=== PATIENT | female | born 1955 | race Caucasian/White ===

== ENCOUNTER → 2017-03-10 | Outpatient (CLI) | payer OTHER ==
[~2017-03-10] MED LIST: ADULT LOW DOSE81 M1 PO; ALBUTEROL SULF8.5 GM IH; AMITRIPTYLINE H50 MG PO; AMITRIPTYLINE100 MG PO; APIDRA SOL100 UNIT/1 SC; ASPIR-LOW81 MG PO; ASPIRIN81 M1 PO; ASPIRIN81 M2 PO; ATORVASTATIN CA40 MG PO; AUGMENTIN875 MG PO; AVAPRO150 MG PO; Aspirin E.C. PO; BACTRIM,SEPT1 TABLET PO; BACTROBAN CREAM15 GM TP; BACTROBAN NASAL1 G1 BOTH NARES; CALCITRIOL0.25 MCG PO; CALCIUM + VITA1 EACH PO; CALCIUM 500 +1 EAC2 PO; CALCIUM 500 +1 EACH PO; CALCIUM 600 +1 EAC1 PO; CALCIUM 600 +1 EAC3 PO; CALCIUM 600 +1 EACH PO; CALCIUM 600 MG1 EAC1 PO; CARDIZEM CD,CA360 MG PO; CELEXA20 MG PO; CELEXA40 MG PO; CHILD ASPIRIN81 M1 PO; CHOLESTROL MED; CIPRO500 MG PO; CIPROFLOXACIN500 M1 PO; CITALOPRAM HBR20 MG PO; CITALOPRAM HBR40 MG PO; CLEOCIN300 MG PO; COUMADIN1 MG PO; COUMADIN2.5 MG PO; COUMADIN5 MG PO; COUMADIN7.5 MG PO; CYMBALTA20 MG PO; Caltrate 600/200 PO; Cardizem CD,Cartia X PO; DIFLUCAN100 MG PO; DIGITEK125 MC2 PO; DIGOX125 MCG PO; DIGOXIN125 MCG PO; DOXYCYCLINE HY100 M3 PO; DOXYCYCLINE HY100 MG PO; ELAVIL100 MG PO; ELAVIL25 MG PO; ELAVIL50 MG PO; ELIQUIS5 MG PO; ENDOCET 5-3251 EACH PO; ERYTHROMYC1 APPLICAT LEFT EYE; Elavil PO; FUROSEMIDE40 MG PO; GABAPENTIN100 MG PO; GABAPENTIN300 MG PO; GEMFIBROZIL600 MG PO; GLIPIZIDE10 MG PO; GLIPIZIDE5 MG PO; GLUCOPHAGE XR,500 MG PO; GLUCOPHAGE1000 MG PO; GLUCOTROL10 MG PO; GLUCOTROL5 MG PO; HUMALOG100 UNIT/1 SC; HUMULIN N100 UNIT/2 SC; HUMULIN N100 UNITS/ SC; HUMULIN R100 UNITS/ SC; HYDROCODON-ACE1 EAC7 PO; IRBESARTAN150 MG PO; IRON27 MG PO; IRON325 MG PO; LASIX40 MG PO; LEVAQUIN500 MG PO; LEVEMIR100 UNIT/2 SC; LEVOFLOXACIN750 MG PO; LEXAPRO10 MG PO; LIPITOR40 MG PO; LO-DOSE ASPIRIN81 M1 PO; LOPID600 MG PO; LOPRESSOR100 M1 PO; LOPRESSOR25 MG PO; LOPRESSOR50 MG PO; LORCET 5-325 M1 EACH PO; LOTENSIN40 MG PO; LOVASTATIN40 MG PO; Lasix PO; Lotensin PO; MAGNESIUM400 M1 PO; METFORMIN HCL1000 M1 PO; METOPROLOL PO; METOPROLOL SUC100 MG PO; METOPROLOL SUC200 MG PO; METOPROLOL TAR100 MG PO; METOPROLOL TART25 MG PO; METOPROLOL TART50 MG PO; MONOPRIL40 MG PO; MYRBETRIQ25 MG PO; NEURONTIN300 MG PO; NIZORAL 2% CREA15 GM TP; NORCO 5/3251 TABLET PO; NORVASC5 MG PO; NOVOLIN N100 UNITS/ SC; NOVOLIN N100 UNITS/ SQ; NOVOLOG100 UNIT/1 SC; OMEPRAZOLE40 M1 PO; OS-CAL 500+D T1 EAC1 PO; OXYCONTIN10 MG PO; PERCOCET 5/31 TABLET PO; PERFECT IRON25 MG PO; PRAVACHOL40 MG PO; PRAVACHOL80 MG PO; PRAVASTATIN SOD80 MG PO; PRILOSEC40 MG PO; PROVENTIL,2.5 MG/0.5 AEROSOL; ROCALTROL0.25 MCG PO; TOPROL XL100 MG PO; TOUJEO SOL300 UNIT/1 SC; Toprol XL PO; VICODIN,LORT1 TABLET PO; VITAMIN D1000 UNIT PO; VITAMIN D31000 UNIT PO; WARFARIN SODIU2.5 MG PO; WARFARIN SODIUM4 MG PO; WARFARIN SODIUM5 MG PO; XARELTO10 MG PO; Xarelto PO; ZYVOX600 MG PO; celeXA PO
== END | disposition home or self-care (01) ==
LOC: NUC 13:49
DX: C50.912 Malignant neoplasm of unspecified site of left female breast (principal)
CPT/HCPCS: 78195; 78999; A9541

== ENCOUNTER 2017-03-11 05:09 | Day surgery (SDC) | payer OTHER ==
[~2017-03-11] VITALS: Ht 170.2 cm; Wt 155.2 kg
[2017-03-11 06:04] VITALS: BP 143/65
[2017-03-11 06:46] LABS: POINT-OF-CARE METER ID UU14174212
[2017-03-11 07:29] LABS: POINT-OF-CARE METER ID UU14174212
[2017-03-11 07:50] LABS: METH RESISTANT S AUREUS PCR NEGATIVE (NEGATIVE)
[2017-03-11 07:51] LABS: PROBE CHECK PASS; SPECIMEN PROCESSING CONTROL PASS
[2017-03-11 10:09] LABS: POINT-OF-CARE METER ID UU14174212
[2017-03-11 12:26] LABS: POINT-OF-CARE METER ID UU13113675; POINT-OF-CARE USER ID 515036437
[2017-03-11 13:53] VITALS: BP 118/73
[2017-03-11 14:49] VITALS: BP 127/56
[2017-03-11 16:31] VITALS: BP 138/62
[2017-03-11 16:34] LABS: POINT-OF-CARE METER ID UU14174212
== END 2017-03-11 16:30 | disposition home or self-care (01) ==
LOC: SDC 05:09
PROVIDERS: Surgery Surgical Oncology
DX: C50.112 Malignant neoplasm of central portion of left female breast (principal); Z17.0 Estrogen receptor positive status [ER+]; Z85.71 Personal history of Hodgkin lymphoma; Z92.3 Personal history of irradiation; Z92.21 Personal history of antineoplastic chemotherapy; Z99.3 Dependence on wheelchair; E11.42 Type 2 diabetes mellitus with diabetic polyneuropathy; Z79.899 Other long term (current) drug therapy; E11.22 Type 2 diabetes mellitus with diabetic chronic kidney disease; I12.9 Hypertensive chronic kidney disease with stage 1 through stage 4 chronic kidney disease, or unspecified chronic kidney disease; N18.9 Chronic kidney disease, unspecified; E78.5 Hyperlipidemia, unspecified; E66.01 Morbid (severe) obesity due to excess calories; Z68.43 Body mass index [BMI] 50.0-59.9, adult; Z86.14 Personal history of Methicillin resistant Staphylococcus aureus infection; Z80.3 Family history of malignant neoplasm of breast; Z98.1 Arthrodesis status; Z98.61 Coronary angioplasty status; Z82.49 Family history of ischemic heart disease and other diseases of the circulatory system; Z80.0 Family history of malignant neoplasm of digestive organs; Z79.82 Long term (current) use of aspirin; Z79.4 Long term (current) use of insulin; Z88.1 Allergy status to other antibiotic agents
CPT/HCPCS: 82948; 87641; 88305; 88307; 88331; 88332; J0690; J1100; J1170; J1815; J2250; J2405; J3010; S0020

== ENCOUNTER → 2017-04-07 | Outpatient (CLI) | payer OTHER ==
[~2017-04-07] VITALS: Ht 167.6 cm; Wt 158.6 kg
[~2017-04-07] MED LIST changes: +CYMBALTA60 MG PO
[2017-04-07 12:09] LABS: POINT-OF-CARE METER ID UU13113694
[2017-04-07 12:46] LABS: POINT-OF-CARE METER ID UU13113694
[2017-04-07 13:04] LABS: POINT-OF-CARE METER ID UU13113819
== END | disposition home or self-care (01) ==
LOC: AMB 11:10
PROVIDERS: Internal Medicine Gastroenterology
PROC: 0DJ08ZZ Inspection of Upper Intestinal Tract, Via Natural or Artificial Opening Endoscopic (ICD-10-PCS; principal; 2017-04-07)
DX: R13.10 Dysphagia, unspecified (principal); K29.70 Gastritis, unspecified, without bleeding; E66.01 Morbid (severe) obesity due to excess calories; Z68.43 Body mass index [BMI] 50.0-59.9, adult; K21.9 Gastro-esophageal reflux disease without esophagitis; I48.91 Unspecified atrial fibrillation; Z79.01 Long term (current) use of anticoagulants; I12.9 Hypertensive chronic kidney disease with stage 1 through stage 4 chronic kidney disease, or unspecified chronic kidney disease; E11.22 Type 2 diabetes mellitus with diabetic chronic kidney disease; N18.9 Chronic kidney disease, unspecified; G47.30 Sleep apnea, unspecified; E78.5 Hyperlipidemia, unspecified; Z85.3 Personal history of malignant neoplasm of breast; Z85.72 Personal history of non-Hodgkin lymphomas
CPT/HCPCS: 82948

== ENCOUNTER 2017-05-18 10:47 | Emergency (ER) | payer OTHER ==
[~2017-05-18] VITALS: Ht 167.6 cm; Wt 177.0 kg
[2017-05-18 12:54] LABS: EOSINOPHIL (%) 1.9 % (0-5); EOSINOPHIL COUNT 0.2 K/uL (0-0.3); HEMATOCRIT 36.2 % (36.0-46.0); IMMATURE GRANULOCYTE (%) 0.5 % (0.0-0.7); INSTRUMENT ABS NEUTROPHIL CT 5.5 K/uL; LYMPHOCYTE COUNT 1.6 K/uL (1.0-2.8); MCH 23.6 PG (29.0-34.0); MCHC 29.8 G/DL (30.0-36.0); MEAN PLAT.VOLUME 9.8 uM^3 (9.5-12.4); MONOCYTE (%) 6.4 % (3-12); MONOCYTE COUNT 0.5 K/uL (0-0.8); NEUTROPHIL (%) 70.9 % (45-76); NEUTROPHIL COUNT 5.5 K/uL (1.8-6.4); PLATELET COUNT 238 K/uL (156-360); RBC DIS.WIDTH-CV 16.4 % (11.8-14.6); RBC DIS.WIDTH-SD 46.4 % (39-53); RED BLOOD COUNT 4.58 M/uL (3.80-5.20); WHITE BLOOD COUNT 7.8 K/uL (4.1-10.2)
[2017-05-18 13:27] LABS: INTER. NORMALIZED RATIO 1.1; PTT 32.9 (25-32)
[2017-05-18 13:31] LABS: CHLORIDE 109 mEq/L (99-109); POTASSIUM 5.4 mEq/L (3.7-5.4); SODIUM 140 mEq/L (136-147)
[2017-05-18 13:32] LABS: GLUCOSE 83 mg/dL (70-99)
[2017-05-18 13:34] LABS: ANION GAP 6 MEQ/L (2-14)
[2017-05-18 13:36] LABS: GFR ESTIMATE (CALCULATED) 21 mL/min/
[2017-05-18 13:37] LABS: UREA NITROGEN (BUN) 50 mg/dL (9-23)
[2017-05-18 13:55] LABS: TROP-I INTERPRETATION NEGATIVE; TROPONIN-I 0.02 ng/mL (0.0-0.30)
[2017-05-18] MEDS ORDERED: PROVENTIL HFA6.7 GM IH (14:02)
[2017-05-18 14:26] VITALS: BP 183/80
== END 2017-05-18 14:40 | disposition home or self-care (01) ==
LOC: EME 10:47
PROVIDERS: Emergency Medicine
DX: J45.901 Unspecified asthma with (acute) exacerbation (principal); J44.1 Chronic obstructive pulmonary disease with (acute) exacerbation; I50.9 Heart failure, unspecified; E78.5 Hyperlipidemia, unspecified; Z79.82 Long term (current) use of aspirin
CPT/HCPCS: 71010; 80048; 83880; 84484; 85025; 85610; 85730; 93005; 94640; 99281; 99285; J2930

== ENCOUNTER 2017-07-13 14:30 | Inpatient (IN) | payer OTHER ==
[~2017-07-13] VITALS: Ht 167.6 cm; Wt 177.2 kg
[~2017-07-13 14:30] MED LIST changes: +PROVENTIL HFA6.7 GM IH
[2017-07-13 15:36] LABS: EOSINOPHIL (%) 1.4 % (0-5); EOSINOPHIL COUNT 0.1 K/uL (0-0.3); HEMATOCRIT 27.7 % (36.0-46.0); IMMATURE GRANULOCYTE (%) 0.3 % (0.0-0.7); INSTRUMENT ABS NEUTROPHIL CT 7.3 K/uL; MCH 21.5 PG (29.0-34.0); MCHC 28.5 G/DL (30.0-36.0); MEAN PLAT.VOLUME 9.4 uM^3 (9.5-12.4); MONOCYTE COUNT 0.5 K/uL (0-0.8); NEUTROPHIL (%) 81.1 % (45-76); NEUTROPHIL COUNT 7.3 K/uL (1.8-6.4); PLATELET COUNT 260 K/uL (156-360); RBC DIS.WIDTH-CV 17.3 % (11.8-14.6); RBC DIS.WIDTH-SD 47.6 % (39-53); RED BLOOD COUNT 3.68 M/uL (3.80-5.20)
[2017-07-13 15:37] LABS: MCV 75.3 FL (83-99)
[2017-07-13 15:44] LABS: CHLORIDE 112 mEq/L (99-109); POTASSIUM 5.5 mEq/L (3.7-5.4); SODIUM 142 mEq/L (136-147)
[2017-07-13 15:45] LABS: GLUCOSE 119 mg/dL (70-99)
[2017-07-13 15:47] LABS: ANION GAP 7 MEQ/L (2-14)
[2017-07-13 15:49] LABS: GFR ESTIMATE (CALCULATED) 21 mL/min/
[2017-07-13 15:50] LABS: UREA NITROGEN (BUN) 58 mg/dL (9-23)
[2017-07-13 15:56] LABS: TROP-I INTERPRETATION NEGATIVE; TROPONIN-I < 0.01 ng/mL (0.0-0.30)
[2017-07-13 18:28] LABS: POINT-OF-CARE METER ID UU13113747; POINT-OF-CARE USER ID NUTJNM
[2017-07-13] MEDS ORDERED: VENTOLIN HFA18 GM IH (19:20)
[2017-07-13 22:05] VITALS: BP 108/42
[2017-07-13 22:48] VITALS: BP 187/84
[2017-07-13 23:06] LABS: TROP-I INTERPRETATION NEGATIVE; TROPONIN-I < 0.01 ng/mL (0.0-0.30)
[2017-07-13 23:07] VITALS: BP 147/67
[2017-07-13 23:35] VITALS: BP 171/74
[2017-07-13 23:59] VITALS: BP 94/74
[2017-07-14] VITALS (10 sets, daily range): BP systolic 112–170; BP diastolic 59–74
[2017-07-14 03:54] LABS: CHLORIDE 110 mEq/L (99-109); POTASSIUM 5.3 mEq/L (3.7-5.4); SODIUM 141 mEq/L (136-147)
[2017-07-14 03:56] LABS: GLUCOSE 135 mg/dL (70-99)
[2017-07-14 03:58] LABS: ANION GAP 8 MEQ/L (2-14); TOTAL BILIRUBIN 0.6 mg/dL (0.0-1.0)
[2017-07-14 04:00] LABS: ALKALINE PHOSPHATASE 112 IU/L (3-129); GFR ESTIMATE (CALCULATED) 19 mL/min/
[2017-07-14 04:01] LABS: UREA NITROGEN (BUN) 63 mg/dL (9-23)
[2017-07-14 04:07] LABS: TROP-I INTERPRETATION NEGATIVE; TROPONIN-I < 0.01 ng/mL (0.0-0.30)
[2017-07-14 06:01] LABS: POINT-OF-CARE METER ID UU13113725
[2017-07-14 06:29] LABS: HEMATOCRIT 30.1 % (36.0-46.0)
[2017-07-14 12:08] LABS: POINT-OF-CARE METER ID UU13113725
[2017-07-14 13:10] LABS: HEMATOCRIT 32.1 % (36.0-46.0); MCV 77.7 FL (83-99)
[2017-07-14 16:32] LABS: POINT-OF-CARE METER ID UU13113725
[2017-07-14 18:14] LABS: HEMATOCRIT 33.5 % (36.0-46.0); MCV 78.1 FL (83-99)
[2017-07-15 01:06] LABS: MCV 76.9 FL (83-99)
[2017-07-15 06:29] LABS: EOSINOPHIL (%) 2.3 % (0-5); EOSINOPHIL COUNT 0.2 K/uL (0-0.3); IMMATURE GRANULOCYTE (%) 0.5 % (0.0-0.7); LYMPHOCYTE COUNT 1.7 K/uL (1.0-2.8); MCHC 31.6 G/DL (30.0-36.0); MEAN PLAT.VOLUME 9.2 uM^3 (9.5-12.4); MONOCYTE (%) 9.5 % (3-12); MONOCYTE COUNT 0.8 K/uL (0-0.8); PLATELET COUNT 236 K/uL (156-360); RBC DIS.WIDTH-CV 18.2 % (11.8-14.6); RBC DIS.WIDTH-SD 49.2 % (39-53); RED BLOOD COUNT 4.08 M/uL (3.80-5.20); WHITE BLOOD COUNT 8.8 K/uL (4.1-10.2)
[2017-07-15 06:49] LABS: ANION GAP 8 MEQ/L (2-14); CHLORIDE 110 MEQ/L (99-109); GFR ESTIMATE (CALCULATED) 19 mL/min/; POTASSIUM 4.3 MEQ/L (3.7-5.4); SAMPLE HEMOLYSIS CHECK 0; SAMPLE ICTERIC CHECK 0; SAMPLE LIPEMIA CHECK 0; SODIUM 143 MEQ/L (136-147); UREA NITROGEN (BUN) 55 mg/dL (9-23)
[2017-07-15 06:50] LABS: GLUCOSE 47 mg/dL (70-99)
[2017-07-15 07:35] VITALS: BP 128/60
[2017-07-15] MEDS ORDERED: LASIX40 MG PO (11:43)
[2017-07-15 12:50] LABS: HEMATOCRIT 33.8 % (36.0-46.0)
== END 2017-07-15 13:15 | disposition home health service (06) | DRG 291 ==
LOC: EME 14:30 → EDOF 19:47 → 5EAST 19:47 → EDOF 19:47 → ENRESERV 19:52 → CANRESERV 19:52 → ENRESERV 19:53 → EDOF 21:46 → 5EAST 21:53 → ENPENDDIS 07-15 → 5EAST 07-15 13:15
PROVIDERS: Emergency Medicine; Internal Medicine; Internal Medicine Nephrology
PROC: 30233N1 Transfusion of Nonautologous Red Blood Cells into Peripheral Vein, Percutaneous Approach (ICD-10-PCS; principal; 2017-07-13)
DX: I13.0 Hypertensive heart and chronic kidney disease with heart failure and stage 1 through stage 4 chronic kidney disease, or unspecified chronic kidney disease (principal); I50.33 Acute on chronic diastolic (congestive) heart failure; N18.4 Chronic kidney disease, stage 4 (severe); E87.5 Hyperkalemia; E11.21 Type 2 diabetes mellitus with diabetic nephropathy; E11.22 Type 2 diabetes mellitus with diabetic chronic kidney disease; D50.9 Iron deficiency anemia, unspecified; C50.912 Malignant neoplasm of unspecified site of left female breast; D63.1 Anemia in chronic kidney disease; I27.2 Other secondary pulmonary hypertension; I48.0 Paroxysmal atrial fibrillation; I48.2 Chronic atrial fibrillation; E11.40 Type 2 diabetes mellitus with diabetic neuropathy, unspecified; G47.33 Obstructive sleep apnea (adult) (pediatric); Z68.44 Body mass index [BMI] 60.0-69.9, adult; E66.01 Morbid (severe) obesity due to excess calories; R55 Syncope and collapse; I25.10 Atherosclerotic heart disease of native coronary artery without angina pectoris; E04.9 Nontoxic goiter, unspecified; I87.8 Other specified disorders of veins; K21.9 Gastro-esophageal reflux disease without esophagitis; G43.909 Migraine, unspecified, not intractable, without status migrainosus; E78.00 Pure hypercholesterolemia, unspecified; F32.9 Major depressive disorder, single episode, unspecified; F41.9 Anxiety disorder, unspecified; Z79.4 Long term (current) use of insulin; Z85.72 Personal history of non-Hodgkin lymphomas; Z90.710 Acquired absence of both cervix and uterus; Z96.612 Presence of left artificial shoulder joint
CPT/HCPCS: 71010; 80048; 80053; 82272; 82948; 83880; 84100; 84484; 85014; 85018; 85025; 86900; 86901; 86920; 93005; 94640; 94660; 99202; 99281; 99285; G0378; J0881; J1815; J1940; P9016

== ENCOUNTER 2017-09-10 18:17 | Emergency (ER) | payer OTHER ==
[~2017-09-10] VITALS: Ht 167.6 cm; Wt 167.1 kg
[~2017-09-10 18:17] MED LIST changes: +VENTOLIN HFA18 GM IH
[2017-09-10 19:40] LABS: CHLORIDE 104 mEq/L (99-109); POTASSIUM 5.1 mEq/L (3.7-5.4); SODIUM 139 mEq/L (136-147)
[2017-09-10 19:42] LABS: GLUCOSE 212 mg/dL (70-99)
[2017-09-10 19:43] LABS: ANION GAP 7 MEQ/L (2-14)
[2017-09-10 19:45] LABS: EOSINOPHIL (%) 0.9 % (0-5); EOSINOPHIL COUNT 0.1 K/uL (0-0.3); HEMATOCRIT 33.2 % (36.0-46.0); IMMATURE GRANULOCYTE (%) 0.4 % (0.0-0.7); INSTRUMENT ABS NEUTROPHIL CT 6.2 K/uL; LYMPHOCYTE COUNT 1.3 K/uL (1.0-2.8); MCH 21.3 PG (29.0-34.0); MCHC 28.6 G/DL (30.0-36.0); MCV 74.4 FL (83-99); MEAN PLAT.VOLUME 10.2 uM^3 (9.5-12.4); MONOCYTE (%) 6.3 % (3-12); MONOCYTE COUNT 0.5 K/uL (0-0.8); NEUTROPHIL (%) 75.8 % (45-76); NEUTROPHIL COUNT 6.2 K/uL (1.8-6.4); PLATELET COUNT 238 K/uL (156-360); RBC DIS.WIDTH-CV 18.9 % (11.8-14.6); RBC DIS.WIDTH-SD 50.2 % (39-53); RED BLOOD COUNT 4.46 M/uL (3.80-5.20); WHITE BLOOD COUNT 8.2 K/uL (4.1-10.2)
[2017-09-10 19:46] LABS: GFR ESTIMATE (CALCULATED) 16 mL/min/; UREA NITROGEN (BUN) 59 mg/dL (9-23)
[2017-09-10] MEDS ORDERED: DOXYCYCLINE HY100 MG PO (21:33)
[2017-09-10] MEDS ORDERED: UNABLE TO OBTAIN (22:37)
[2017-09-10 22:39] VITALS: BP 161/77
== END 2017-09-10 22:41 | disposition home or self-care (01) ==
LOC: EME 18:17
DX: L03.115 Cellulitis of right lower limb (principal); I12.9 Hypertensive chronic kidney disease with stage 1 through stage 4 chronic kidney disease, or unspecified chronic kidney disease; E11.22 Type 2 diabetes mellitus with diabetic chronic kidney disease; N18.9 Chronic kidney disease, unspecified; E87.6 Hypokalemia; I87.2 Venous insufficiency (chronic) (peripheral); E78.5 Hyperlipidemia, unspecified; Z85.72 Personal history of non-Hodgkin lymphomas; Z90.710 Acquired absence of both cervix and uterus; Z90.10 Acquired absence of unspecified breast and nipple; Z79.01 Long term (current) use of anticoagulants; Z79.82 Long term (current) use of aspirin; Z79.4 Long term (current) use of insulin
CPT/HCPCS: 80048; 83605; 85025; 99281; 99284

== ENCOUNTER 2017-12-02 05:33 | Day surgery (SDC) | payer OTHER ==
[~2017-12-02] VITALS: Ht 167.6 cm; Wt 158.7 kg
[~2017-12-02 05:33] MED LIST changes: +AMLODIPINE BESYL5 MG PO; +BUMETANIDE1 MG PO; +BUMEX1 MG PO; +BUMEX2 MG PO; +CALICUM 500+D1 EACH PO; +CIPRO250 MG PO; +DULOXETINE HCL40 MG PO; +LIDODERM 5% P1 PATCH TD; -LORCET 5-325 M1 EACH PO; +LYRICA25 MG PO; +METOLAZONE2.5 MG PO; +MUPIROCIN15 GM TP; +NOVOLOG PE100 UNITS/ SC; -NOVOLOG100 UNIT/1 SC; +PROBIOTIC1 EAC1 PO; +SILVER SULFADIA50 GM TP; +UNABLE TO OBTAIN
[2017-12-02 06:40] VITALS: BP 128/55
[2017-12-02 06:41] LABS: HEMATOCRIT 37.6 % (36.0-46.0); HEMOGLOBIN 11.5 G/DL (11.9-15.5); MCH 24.4 PG (29.0-34.0); MCHC 30.6 G/DL (30.0-36.0); MCV 79.7 FL (83-99); PLATELET COUNT 232 K/uL (156-360); RBC DIS.WIDTH-CV 21.5 % (11.8-14.6); RBC DIS.WIDTH-SD 61.2 % (39-53); RED BLOOD COUNT 4.72 M/uL (3.80-5.20); WHITE BLOOD COUNT 5.8 K/uL (4.1-10.2)
[2017-12-02 07:08] LABS: CHLORIDE 102 MEQ/L (99-109); CREATININE 3.3 MG/DL (0.6-1.3); GFR ESTIMATE (CALCULATED) 15 mL/min/; GLUCOSE 134 mg/dL (70-99); POTASSIUM 4.4 MEQ/L (3.7-5.4); SODIUM 139 MEQ/L (136-147); UREA NITROGEN (BUN) 75 mg/dL (9-23)
[2017-12-02 12:05] VITALS: BP 133/49
[2017-12-02 13:05] VITALS: BP 147/51
[2017-12-02 14:41] VITALS: BP 150/56
== END 2017-12-02 14:55 | disposition home or self-care (01) ==
LOC: SDC 05:33
PROVIDERS: Surgery
DX: I12.0 Hypertensive chronic kidney disease with stage 5 chronic kidney disease or end stage renal disease (principal); E11.22 Type 2 diabetes mellitus with diabetic chronic kidney disease; N18.6 End stage renal disease; I25.10 Atherosclerotic heart disease of native coronary artery without angina pectoris; E78.00 Pure hypercholesterolemia, unspecified; G47.30 Sleep apnea, unspecified; I48.91 Unspecified atrial fibrillation; Z86.14 Personal history of Methicillin resistant Staphylococcus aureus infection; I89.0 Lymphedema, not elsewhere classified; I70.232 Atherosclerosis of native arteries of right leg with ulceration of calf; Z79.4 Long term (current) use of insulin; Z79.01 Long term (current) use of anticoagulants
CPT/HCPCS: 80048; 82948; 85027; 87641; 93005; C1768; J0690; J1644; J2720; J3010

== ENCOUNTER 2017-12-14 14:57 | Emergency (ER) | payer OTHER ==
[~2017-12-14] VITALS: Ht 167.6 cm; Wt 162.0 kg
[2017-12-14 16:54] VITALS: BP 178/78
== END 2017-12-14 16:55 | disposition home or self-care (01) ==
LOC: EME 14:57
DX: T81.30XA Disruption of wound, unspecified, initial encounter (principal); I13.0 Hypertensive heart and chronic kidney disease with heart failure and stage 1 through stage 4 chronic kidney disease, or unspecified chronic kidney disease; E11.22 Type 2 diabetes mellitus with diabetic chronic kidney disease; I50.9 Heart failure, unspecified; N18.9 Chronic kidney disease, unspecified; Z99.2 Dependence on renal dialysis; Z79.4 Long term (current) use of insulin; I48.91 Unspecified atrial fibrillation; E78.5 Hyperlipidemia, unspecified; Z85.72 Personal history of non-Hodgkin lymphomas; K21.9 Gastro-esophageal reflux disease without esophagitis; F41.9 Anxiety disorder, unspecified; Z85.3 Personal history of malignant neoplasm of breast; Z90.12 Acquired absence of left breast and nipple; F32.9 Major depressive disorder, single episode, unspecified; Z79.82 Long term (current) use of aspirin
CPT/HCPCS: 99281; 99284

== ENCOUNTER 2018-04-01 06:57 | Day surgery (SDC) | payer OTHER ==
[~2018-04-01] VITALS: Ht 167.6 cm; Wt 163.0 kg
== END 2018-04-01 09:18 | disposition home or self-care (01) ==
LOC: CATH 06:57
PROVIDERS: Surgery
DX: T82.858A Stenosis of other vascular prosthetic devices, implants and grafts, initial encounter (principal); I12.0 Hypertensive chronic kidney disease with stage 5 chronic kidney disease or end stage renal disease; N18.6 End stage renal disease; Z99.2 Dependence on renal dialysis
CPT/HCPCS: 82948; C1725; C1769; C1874; C1894; J0360; J1644; J2250

== ENCOUNTER 2018-07-11 14:25 | Inpatient (IN) | payer OTHER ==
[~2018-07-11] VITALS: Ht 167.6 cm; Wt 140.1 kg
[2018-07-11 15:13] LABS: BASOPHIL (%) 0.3 % (0-1); EOSINOPHIL (%) 0.7 % (0-5); EOSINOPHIL COUNT 0.1 K/uL (0-0.3); HEMATOCRIT 41.3 % (36.0-46.0); HEMOGLOBIN 12.8 G/DL (11.9-15.5); IMMATURE GRANULOCYTE (%) 0.7 % (0.0-0.7); LYMPHOCYTE (%) 14.2 % (15-42); LYMPHOCYTE COUNT 1.8 K/uL (1.0-2.8); MCH 26.8 PG (29.0-34.0); MCV 86.6 FL (83-99); MONOCYTE (%) 7.2 % (3-12); MONOCYTE COUNT 0.9 K/uL (0-0.8); NEUTROPHIL (%) 76.9 % (45-76); NEUTROPHIL COUNT 9.9 K/uL (1.8-6.4); PLATELET COUNT 276 K/uL (156-360); RBC DIS.WIDTH-CV 19.2 % (11.8-14.6); RED BLOOD COUNT 4.77 M/uL (3.80-5.20); WHITE BLOOD COUNT 12.8 K/uL (4.1-10.2)
[2018-07-11 15:22] LABS: CHLORIDE 90 mEq/L (99-109); POTASSIUM 3.6 mEq/L (3.7-5.4); SODIUM 136 mEq/L (136-147)
[2018-07-11 15:24] LABS: GLUCOSE 120 mg/dL (70-99)
[2018-07-11 15:27] LABS: CREATININE 4.5 mg/dL (0.6-1.3); GFR ESTIMATE (CALCULATED) 10 mL/min/
[2018-07-11 15:28] LABS: UREA NITROGEN (BUN) 26 mg/dL (9-23)
[2018-07-11 18:02] VITALS: BP 127/47
[2018-07-11 22:57] VITALS: BP 138/66
[2018-07-12 06:32] LABS: HEMATOCRIT 39.1 % (36.0-46.0); MCH 26.7 PG (29.0-34.0); MCHC 30.7 G/DL (30.0-36.0); MCV 86.9 FL (83-99); PLATELET COUNT 261 K/uL (156-360); RBC DIS.WIDTH-CV 19.3 % (11.8-14.6); RBC DIS.WIDTH-SD 60.5 % (39-53); WHITE BLOOD COUNT 12.4 K/uL (4.1-10.2)
[2018-07-12 06:52] LABS: CHLORIDE 92 MEQ/L (99-109); CREATININE 5.1 MG/DL (0.6-1.3); GFR ESTIMATE (CALCULATED) 9 mL/min/; POTASSIUM 3.4 MEQ/L (3.7-5.4); SODIUM 137 MEQ/L (136-147); UREA NITROGEN (BUN) 31 mg/dL (9-23)
[2018-07-12 06:56] LABS: GLUCOSE 198 mg/dL (70-99)
[2018-07-12 07:00] VITALS: BP 130/52
[2018-07-12 09:52] LABS: HEMOGLOBIN A1c (GLYCOHEMOGLOB) 6.5 % (Below 5.7)
[2018-07-12] MEDS ORDERED: FERRIC CITRATE210 MG PO (13:06)
[2018-07-12] MEDS ORDERED: ALLOPURINOL100 MG PO (13:06)
[2018-07-12] MEDS ORDERED: AMLODIPINE BESYL5 MG PO (13:06)
[2018-07-12] MEDS ORDERED: ZOFRAN4 MG PO (13:06)
[2018-07-12] MEDS ORDERED: LINZESS72 MCG PO (13:09)
[2018-07-12 15:45] VITALS: BP 141/65
[2018-07-12 23:56] VITALS: BP 138/60
[2018-07-13 05:37] LABS: HEMATOCRIT 45.7 % (36.0-46.0); MCH 26.8 PG (29.0-34.0); MCHC 31.3 G/DL (30.0-36.0); MCV 85.7 FL (83-99); PLATELET COUNT 193 K/uL (156-360); RBC DIS.WIDTH-CV 20.1 % (11.8-14.6); RBC DIS.WIDTH-SD 60.1 % (39-53); RED BLOOD COUNT 5.33 M/uL (3.80-5.20); WHITE BLOOD COUNT 13.4 K/uL (4.1-10.2)
[2018-07-13 05:38] LABS: HEMOGLOBIN 14.3 G/DL (11.9-15.5)
[2018-07-13 05:46] LABS: CHLORIDE 94 MEQ/L (99-109); GLUCOSE 240 mg/dL (70-99); SODIUM 136 MEQ/L (136-147); UREA NITROGEN (BUN) 46 mg/dL (9-23)
[2018-07-13 05:56] LABS: CREATININE 6.4 MG/DL (0.6-1.3); GFR ESTIMATE (CALCULATED) 7 mL/min/; POTASSIUM 4.3 MEQ/L (3.7-5.4)
[2018-07-13 07:17] VITALS: BP 126/55
[2018-07-13 13:04] VITALS: BP 106/52
[2018-07-13 15:40] VITALS: BP 129/60
[2018-07-13 20:55] VITALS: BP 130/70
[2018-07-13 23:23] VITALS: BP 110/55
[2018-07-14 07:01] LABS: BASOPHIL (%) 0.5 % (0-1); BASOPHIL COUNT 0.1 K/uL (0-0.1); EOSINOPHIL (%) 1.8 % (0-5); EOSINOPHIL COUNT 0.2 K/uL (0-0.3); HEMATOCRIT 39.7 % (36.0-46.0); IMMATURE GRANULOCYTE (%) 0.8 % (0.0-0.7); LYMPHOCYTE (%) 16.4 % (15-42); LYMPHOCYTE COUNT 2.2 K/uL (1.0-2.8); MCH 26.8 PG (29.0-34.0); MCHC 30.2 G/DL (30.0-36.0); MCV 88.6 FL (83-99); MONOCYTE (%) 6.7 % (3-12); MONOCYTE COUNT 0.9 K/uL (0-0.8); NEUTROPHIL (%) 73.8 % (45-76); PLATELET COUNT 237 K/uL (156-360); RBC DIS.WIDTH-CV 19.6 % (11.8-14.6); RBC DIS.WIDTH-SD 62.4 % (39-53); RED BLOOD COUNT 4.48 M/uL (3.80-5.20); WHITE BLOOD COUNT 13.6 K/uL (4.1-10.2)
[2018-07-14 07:32] LABS: CHLORIDE 98 MEQ/L (99-109); GFR ESTIMATE (CALCULATED) 9 mL/min/; GLUCOSE 164 mg/dL (70-99); POTASSIUM 4.3 MEQ/L (3.7-5.4); SODIUM 137 MEQ/L (136-147); UREA NITROGEN (BUN) 32 mg/dL (9-23)
[2018-07-14 07:45] VITALS: BP 106/39
[2018-07-14 12:22] VITALS: BP 115/48
[2018-07-14 16:31] VITALS: BP 106/56
[2018-07-15 00:24] VITALS: BP 128/64
[2018-07-15 07:26] VITALS: BP 118/53
[2018-07-15 08:52] LABS: BASOPHIL (%) 0.6 % (0-1); BASOPHIL COUNT 0.1 K/uL (0-0.1); EOSINOPHIL (%) 1.7 % (0-5); EOSINOPHIL COUNT 0.2 K/uL (0-0.3); HEMATOCRIT 36.8 % (36.0-46.0); HEMOGLOBIN 11.3 G/DL (11.9-15.5); IMMATURE GRANULOCYTE (%) 1.1 % (0.0-0.7); LYMPHOCYTE COUNT 1.3 K/uL (1.0-2.8); MCH 26.8 PG (29.0-34.0); MCHC 30.7 G/DL (30.0-36.0); MCV 87.4 FL (83-99); MONOCYTE (%) 6.5 % (3-12); MONOCYTE COUNT 0.6 K/uL (0-0.8); NEUTROPHIL (%) 76.1 % (45-76); NEUTROPHIL COUNT 7.2 K/uL (1.8-6.4); PLATELET COUNT 209 K/uL (156-360); RBC DIS.WIDTH-CV 19.4 % (11.8-14.6); RBC DIS.WIDTH-SD 60.5 % (39-53); RED BLOOD COUNT 4.21 M/uL (3.80-5.20); WHITE BLOOD COUNT 9.5 K/uL (4.1-10.2)
[2018-07-15 09:11] LABS: ALBUMIN 2.4 G/DL (3.2-4.8); CHLORIDE 96 MEQ/L (99-109); POTASSIUM 4.1 MEQ/L (3.7-5.4); SODIUM 133 MEQ/L (136-147)
[2018-07-15 09:17] LABS: CREATININE 5.5 MG/DL (0.6-1.3); GFR ESTIMATE (CALCULATED) 8 mL/min/; GLUCOSE 186 mg/dL (70-99); PHOSPHORUS 5.4 mg/dL (2.5-4.9); UREA NITROGEN (BUN) 47 mg/dL (9-23)
[2018-07-15 13:16] VITALS: BP 113/49
[2018-07-15 15:30] VITALS: BP 121/56
[2018-07-15 23:01] VITALS: BP 106/51
[2018-07-16 05:59] LABS: BASOPHIL (%) 0.7 % (0-1); BASOPHIL COUNT 0.1 K/uL (0-0.1); EOSINOPHIL (%) 1.5 % (0-5); EOSINOPHIL COUNT 0.2 K/uL (0-0.3); HEMATOCRIT 38.5 % (36.0-46.0); HEMOGLOBIN 11.8 G/DL (11.9-15.5); LYMPHOCYTE (%) 17.4 % (15-42); LYMPHOCYTE COUNT 1.7 K/uL (1.0-2.8); MCH 26.8 PG (29.0-34.0); MCHC 30.6 G/DL (30.0-36.0); MCV 87.3 FL (83-99); MONOCYTE (%) 8.2 % (3-12); MONOCYTE COUNT 0.8 K/uL (0-0.8); NEUTROPHIL (%) 71.2 % (45-76); NEUTROPHIL COUNT 7.1 K/uL (1.8-6.4); PLATELET COUNT 193 K/uL (156-360); RBC DIS.WIDTH-CV 19.6 % (11.8-14.6); RED BLOOD COUNT 4.41 M/uL (3.80-5.20)
[2018-07-16 06:23] LABS: CHLORIDE 102 MEQ/L (99-109); GFR ESTIMATE (CALCULATED) 12 mL/min/; POTASSIUM 4.3 MEQ/L (3.7-5.4); SODIUM 138 MEQ/L (136-147); UREA NITROGEN (BUN) 28 mg/dL (9-23)
[2018-07-16 06:27] LABS: CREATININE 4.1 MG/DL (0.6-1.3); GLUCOSE 64 mg/dL (70-99)
[2018-07-16 07:00] VITALS: BP 134/61
[2018-07-16 15:30] VITALS: BP 121/55
[2018-07-16 23:09] VITALS: BP 119/58
[2018-07-17 07:47] VITALS: BP 122/68
[2018-07-17 08:14] LABS: BASOPHIL (%) 0.7 % (0-1); BASOPHIL COUNT 0.1 K/uL (0-0.1); EOSINOPHIL (%) 1.1 % (0-5); EOSINOPHIL COUNT 0.1 K/uL (0-0.3); HEMATOCRIT 35.2 % (36.0-46.0); IMMATURE GRANULOCYTE (%) 1.3 % (0.0-0.7); LYMPHOCYTE (%) 18.2 % (15-42); LYMPHOCYTE COUNT 1.8 K/uL (1.0-2.8); MCH 27.2 PG (29.0-34.0); MCHC 31.3 G/DL (30.0-36.0); MCV 86.9 FL (83-99); MONOCYTE (%) 6.8 % (3-12); MONOCYTE COUNT 0.7 K/uL (0-0.8); NEUTROPHIL (%) 71.9 % (45-76); NEUTROPHIL COUNT 6.9 K/uL (1.8-6.4); NRBC (%) 0.2 /100 WBC (0-0); PLATELET COUNT 194 K/uL (156-360); RBC DIS.WIDTH-CV 19.5 % (11.8-14.6); RED BLOOD COUNT 4.05 M/uL (3.80-5.20); WHITE BLOOD COUNT 9.6 K/uL (4.1-10.2)
[2018-07-17 08:35] LABS: ALBUMIN 2.5 G/DL (3.2-4.8); CHLORIDE 97 MEQ/L (99-109); PHOSPHORUS 5.8 mg/dL (2.5-4.9); POTASSIUM 4.9 MEQ/L (3.7-5.4); UREA NITROGEN (BUN) 41 mg/dL (9-23)
[2018-07-17 08:36] LABS: CREATININE 5.1 MG/DL (0.6-1.3); GFR ESTIMATE (CALCULATED) 9 mL/min/; GLUCOSE 222 mg/dL (70-99); SODIUM 131 MEQ/L (136-147)
[2018-07-17 12:48] VITALS: BP 109/72
[2018-07-17 15:56] VITALS: BP 124/57
[2018-07-17 23:16] VITALS: BP 147/63
[2018-07-18 07:05] VITALS: BP 116/57
[2018-07-18 15:00] VITALS: BP 130/62
[2018-07-18 23:35] VITALS: BP 147/63
[2018-07-19 08:15] VITALS: BP 133/63
[2018-07-19 14:11] LABS: BASOPHIL (%) 0.5 % (0-1); BASOPHIL COUNT 0.1 K/uL (0-0.1); EOSINOPHIL (%) 1.2 % (0-5); EOSINOPHIL COUNT 0.1 K/uL (0-0.3); HEMATOCRIT 36.5 % (36.0-46.0); HEMOGLOBIN 11.1 G/DL (11.9-15.5); IMMATURE GRANULOCYTE (%) 0.8 % (0.0-0.7); LYMPHOCYTE (%) 17.4 % (15-42); LYMPHOCYTE COUNT 1.8 K/uL (1.0-2.8); MCH 27.1 PG (29.0-34.0); MCHC 30.4 G/DL (30.0-36.0); MCV 89.2 FL (83-99); MONOCYTE (%) 7.1 % (3-12); MONOCYTE COUNT 0.7 K/uL (0-0.8); NEUTROPHIL COUNT 7.4 K/uL (1.8-6.4); NRBC (%) 0.3 /100 WBC (0-0); PLATELET COUNT 167 K/uL (156-360); RBC DIS.WIDTH-CV 19.9 % (11.8-14.6); RBC DIS.WIDTH-SD 62.8 % (39-53); RED BLOOD COUNT 4.09 M/uL (3.80-5.20); WHITE BLOOD COUNT 10.1 K/uL (4.1-10.2)
[2018-07-19 14:18] LABS: ALBUMIN 2.3 g/dL (3.2-4.8)
[2018-07-19 14:19] LABS: CHLORIDE 103 mEq/L (99-109); POTASSIUM 5.3 mEq/L (3.7-5.4); SODIUM 137 mEq/L (136-147)
[2018-07-19 14:21] LABS: GLUCOSE 124 mg/dL (70-99); TOTAL PROTEIN 6.4 g/dL (6.4-8.3)
[2018-07-19 14:23] LABS: TOTAL BILIRUBIN 0.5 mg/dL (0.0-1.0)
[2018-07-19 14:24] LABS: ALKALINE PHOSPHATASE 118 IU/L (3-129)
[2018-07-19 14:25] LABS: CREATININE 5.5 mg/dL (0.6-1.3); GFR ESTIMATE (CALCULATED) 8 mL/min/
[2018-07-19 14:26] LABS: AST (GOT) 16 IU/L (2-34); UREA NITROGEN (BUN) 43 mg/dL (9-23)
[2018-07-19 14:28] LABS: ALT (GPT) 11 IU/L (3-49)
[2018-07-19 16:21] VITALS: BP 135/63
[2018-07-19 23:51] VITALS: BP 153/71
[2018-07-20 06:10] LABS: HEMATOCRIT 35.8 % (36.0-46.0); HEMOGLOBIN 10.9 G/DL (11.9-15.5); MCHC 30.4 G/DL (30.0-36.0); MCV 88.6 FL (83-99); NRBC (%) 0.4 /100 WBC (0-0); PLATELET COUNT 144 K/uL (156-360); RBC DIS.WIDTH-CV 20.1 % (11.8-14.6); RBC DIS.WIDTH-SD 62.8 % (39-53); RED BLOOD COUNT 4.04 M/uL (3.80-5.20); WHITE BLOOD COUNT 8.3 K/uL (4.1-10.2)
[2018-07-20 06:15] LABS: BASOPHIL (%) 0.7 % (0-1); BASOPHIL COUNT 0.1 K/uL (0-0.1); EOSINOPHIL (%) 1.2 % (0-5); EOSINOPHIL COUNT 0.1 K/uL (0-0.3); IMMATURE GRANULOCYTE (%) 0.7 % (0.0-0.7); LYMPHOCYTE (%) 20.7 % (15-42); LYMPHOCYTE COUNT 1.7 K/uL (1.0-2.8); MONOCYTE (%) 8.1 % (3-12); MONOCYTE COUNT 0.7 K/uL (0-0.8); NEUTROPHIL (%) 68.6 % (45-76); NEUTROPHIL COUNT 5.7 K/uL (1.8-6.4)
[2018-07-20 06:34] LABS: CHLORIDE 102 MEQ/L (99-109); CREATININE 5.6 MG/DL (0.6-1.3); GFR ESTIMATE (CALCULATED) 8 mL/min/; POTASSIUM 4.6 MEQ/L (3.7-5.4); SODIUM 138 MEQ/L (136-147); UREA NITROGEN (BUN) 49 mg/dL (9-23)
[2018-07-20 06:41] LABS: GLUCOSE 66 mg/dL (70-99)
[2018-07-20 07:15] VITALS: BP 116/58
[2018-07-20 08:13] VITALS: BP 127/58
[2018-07-20 13:50] VITALS: BP 118/53
[2018-07-20 15:35] VITALS: BP 104/43
[2018-07-21 00:07] VITALS: BP 141/76
[2018-07-21 06:01] LABS: BASOPHIL (%) 0.8 % (0-1); BASOPHIL COUNT 0.1 K/uL (0-0.1); EOSINOPHIL (%) 1.1 % (0-5); EOSINOPHIL COUNT 0.1 K/uL (0-0.3); HEMATOCRIT 36.6 % (36.0-46.0); HEMOGLOBIN 11.1 G/DL (11.9-15.5); IMMATURE GRANULOCYTE (%) 0.7 % (0.0-0.7); LYMPHOCYTE (%) 22.5 % (15-42); LYMPHOCYTE COUNT 1.6 K/uL (1.0-2.8); MCH 26.9 PG (29.0-34.0); MCHC 30.3 G/DL (30.0-36.0); MCV 88.6 FL (83-99); MONOCYTE (%) 10.2 % (3-12); MONOCYTE COUNT 0.7 K/uL (0-0.8); NEUTROPHIL (%) 64.7 % (45-76); NEUTROPHIL COUNT 4.7 K/uL (1.8-6.4); PLATELET COUNT 101 K/uL (156-360); RBC DIS.WIDTH-CV 20.6 % (11.8-14.6); RBC DIS.WIDTH-SD 63.4 % (39-53); RED BLOOD COUNT 4.13 M/uL (3.80-5.20); WHITE BLOOD COUNT 7.3 K/uL (4.1-10.2)
[2018-07-21 06:27] LABS: CHLORIDE 101 MEQ/L (99-109); GFR ESTIMATE (CALCULATED) 11 mL/min/; POTASSIUM 4.3 MEQ/L (3.7-5.4); SODIUM 137 MEQ/L (136-147); UREA NITROGEN (BUN) 29 mg/dL (9-23)
[2018-07-21 06:28] LABS: CREATININE 4.2 MG/DL (0.6-1.3); GLUCOSE 122 mg/dL (70-99)
[2018-07-21 06:56] VITALS: BP 133/60
[2018-07-21 15:45] VITALS: BP 148/65
[2018-07-21 23:48] VITALS: BP 90/51
[2018-07-22 07:44] VITALS: BP 136/80
[2018-07-22 08:26] LABS: BASOPHIL (%) 0.5 % (0-1); BASOPHIL COUNT 0.1 K/uL (0-0.1); EOSINOPHIL (%) 0.4 % (0-5); HEMATOCRIT 34.1 % (36.0-46.0); HEMOGLOBIN 10.3 G/DL (11.9-15.5); IMMATURE GRANULOCYTE (%) 0.7 % (0.0-0.7); LYMPHOCYTE (%) 14.3 % (15-42); LYMPHOCYTE COUNT 1.5 K/uL (1.0-2.8); MCH 26.9 PG (29.0-34.0); MCHC 30.2 G/DL (30.0-36.0); MONOCYTE (%) 8.1 % (3-12); MONOCYTE COUNT 0.9 K/uL (0-0.8); NRBC (%) 0.2 /100 WBC (0-0); PLATELET COUNT 99 K/uL (156-360); RBC DIS.WIDTH-CV 20.5 % (11.8-14.6); RBC DIS.WIDTH-SD 65.1 % (39-53); RED BLOOD COUNT 3.83 M/uL (3.80-5.20); WHITE BLOOD COUNT 10.5 K/uL (4.1-10.2)
[2018-07-22 08:57] LABS: CHLORIDE 100 MEQ/L (99-109); POTASSIUM 4.6 MEQ/L (3.7-5.4); SODIUM 133 MEQ/L (136-147); UREA NITROGEN (BUN) 40 mg/dL (9-23); VANCOMYCIN, TROUGH 22.8 MCG/ML (10-20)
[2018-07-22 08:59] LABS: CREATININE 5.1 MG/DL (0.6-1.3); GLUCOSE 211 mg/dL (70-99)
[2018-07-22 09:00] LABS: GFR ESTIMATE (CALCULATED) 9 mL/min/
[2018-07-22 12:35] VITALS: BP 112/58
[2018-07-22 16:07] VITALS: BP 120/62
[2018-07-22 23:50] VITALS: BP 112/53
[2018-07-23 05:18] LABS: BASOPHIL (%) 0.7 % (0-1); BASOPHIL COUNT 0.1 K/uL (0-0.1); EOSINOPHIL (%) 0.6 % (0-5); EOSINOPHIL COUNT 0.1 K/uL (0-0.3); HEMOGLOBIN 10.3 G/DL (11.9-15.5); IMMATURE GRANULOCYTE (%) 0.6 % (0.0-0.7); LYMPHOCYTE (%) 17.5 % (15-42); LYMPHOCYTE COUNT 1.9 K/uL (1.0-2.8); MCH 27.7 PG (29.0-34.0); MCHC 30.3 G/DL (30.0-36.0); MCV 91.4 FL (83-99); MONOCYTE (%) 9.1 % (3-12); NEUTROPHIL (%) 71.5 % (45-76); NEUTROPHIL COUNT 7.6 K/uL (1.8-6.4); NRBC (%) 0.2 /100 WBC (0-0); PLATELET COUNT 71 K/uL (156-360); RBC DIS.WIDTH-CV 21.1 % (11.8-14.6); RED BLOOD COUNT 3.72 M/uL (3.80-5.20); WHITE BLOOD COUNT 10.7 K/uL (4.1-10.2)
[2018-07-23 06:13] LABS: CHLORIDE 101 MEQ/L (99-109); GFR ESTIMATE (CALCULATED) 13 mL/min/; GLUCOSE 197 mg/dL (70-99); POTASSIUM 4.4 MEQ/L (3.7-5.4); SODIUM 137 MEQ/L (136-147); UREA NITROGEN (BUN) 22 mg/dL (9-23); VANCOMYCIN, TROUGH 16.1 MCG/ML (10-20)
[2018-07-23 06:15] LABS: CREATININE 3.7 MG/DL (0.6-1.3)
[2018-07-23 06:24] VITALS: BP 119/61
[2018-07-23 07:45] VITALS: BP 123/58
[2018-07-23 15:30] VITALS: BP 101/43
[2018-07-23 20:45] VITALS: BP 125/58
[2018-07-24 07:20] VITALS: BP 113/54
[2018-07-24 10:27] LABS: BASOPHIL (%) 0.6 % (0-1); BASOPHIL COUNT 0.1 K/uL (0-0.1); EOSINOPHIL (%) 0.9 % (0-5); EOSINOPHIL COUNT 0.1 K/uL (0-0.3); HEMATOCRIT 31.5 % (36.0-46.0); HEMOGLOBIN 9.8 G/DL (11.9-15.5); IMMATURE GRANULOCYTE (%) 0.8 % (0.0-0.7); LYMPHOCYTE (%) 13.9 % (15-42); LYMPHOCYTE COUNT 1.4 K/uL (1.0-2.8); MCH 28.4 PG (29.0-34.0); MCHC 31.1 G/DL (30.0-36.0); MCV 91.3 FL (83-99); MONOCYTE (%) 6.5 % (3-12); MONOCYTE COUNT 0.7 K/uL (0-0.8); NEUTROPHIL (%) 77.3 % (45-76); NEUTROPHIL COUNT 7.9 K/uL (1.8-6.4); NRBC (%) 0.2 /100 WBC (0-0); PLATELET COUNT 68 K/uL (156-360); RBC DIS.WIDTH-CV 21.3 % (11.8-14.6); RED BLOOD COUNT 3.45 M/uL (3.80-5.20); WHITE BLOOD COUNT 10.2 K/uL (4.1-10.2)
[2018-07-24 10:45] LABS: ALBUMIN 2.4 G/DL (3.2-4.8); CHLORIDE 100 MEQ/L (99-109); GFR ESTIMATE (CALCULATED) 9 mL/min/; GLUCOSE 284 mg/dL (70-99); PHOSPHORUS 5.3 mg/dL (2.5-4.9); POTASSIUM 4.2 MEQ/L (3.7-5.4); SODIUM 134 MEQ/L (136-147); UREA NITROGEN (BUN) 32 mg/dL (9-23)
[2018-07-24 10:50] LABS: CREATININE 5.2 MG/DL (0.6-1.3)
[2018-07-24 16:00] VITALS: BP 121/56
[2018-07-24 21:36] VITALS: BP 110/70
[2018-07-24 23:04] VITALS: BP 122/59
[2018-07-25 07:05] VITALS: BP 156/48
[2018-07-25 15:54] VITALS: BP 116/42
[2018-07-25 23:55] VITALS: BP 123/55
[2018-07-26 07:20] VITALS: BP 126/59
[2018-07-26 10:12] LABS: BASOPHIL (%) 0.8 % (0-1); BASOPHIL COUNT 0.1 K/uL (0-0.1); EOSINOPHIL (%) 1.2 % (0-5); EOSINOPHIL COUNT 0.1 K/uL (0-0.3); HEMATOCRIT 36.5 % (36.0-46.0); HEMOGLOBIN 10.9 G/DL (11.9-15.5); IMMATURE GRANULOCYTE (%) 0.8 % (0.0-0.7); LYMPHOCYTE (%) 19.8 % (15-42); LYMPHOCYTE COUNT 1.8 K/uL (1.0-2.8); MCHC 29.9 G/DL (30.0-36.0); MCV 93.8 FL (83-99); MONOCYTE (%) 9.7 % (3-12); MONOCYTE COUNT 0.9 K/uL (0-0.8); NEUTROPHIL (%) 67.7 % (45-76); NRBC (%) 0.2 /100 WBC (0-0); PLATELET COUNT 83 K/uL (156-360); RBC DIS.WIDTH-CV 21.8 % (11.8-14.6); RBC DIS.WIDTH-SD 71.8 % (39-53); RED BLOOD COUNT 3.89 M/uL (3.80-5.20); WHITE BLOOD COUNT 8.8 K/uL (4.1-10.2)
[2018-07-26 10:40] LABS: CHLORIDE 101 MEQ/L (99-109); CREATININE 5.2 MG/DL (0.6-1.3); GFR ESTIMATE (CALCULATED) 9 mL/min/; GLUCOSE 275 mg/dL (70-99); POTASSIUM 4.4 MEQ/L (3.7-5.4); SODIUM 136 MEQ/L (136-147); UREA NITROGEN (BUN) 27 mg/dL (9-23)
[2018-07-26 16:03] VITALS: BP 113/49
[2018-07-26 20:22] VITALS: BP 144/68
[2018-07-26 23:35] VITALS: BP 133/58
[2018-07-27 07:30] VITALS: BP 129/60
[2018-07-27 07:57] LABS: BASOPHIL (%) 0.6 % (0-1); BASOPHIL COUNT 0.1 K/uL (0-0.1); EOSINOPHIL (%) 1.3 % (0-5); EOSINOPHIL COUNT 0.1 K/uL (0-0.3); HEMOGLOBIN 10.4 G/DL (11.9-15.5); IMMATURE GRANULOCYTE (%) 0.8 % (0.0-0.7); LYMPHOCYTE (%) 15.5 % (15-42); LYMPHOCYTE COUNT 1.3 K/uL (1.0-2.8); MCH 28.9 PG (29.0-34.0); MCHC 31.5 G/DL (30.0-36.0); MCV 91.7 FL (83-99); MONOCYTE (%) 8.1 % (3-12); MONOCYTE COUNT 0.7 K/uL (0-0.8); NEUTROPHIL (%) 73.7 % (45-76); NEUTROPHIL COUNT 6.2 K/uL (1.8-6.4); RBC DIS.WIDTH-CV 21.9 % (11.8-14.6); RBC DIS.WIDTH-SD 70.8 % (39-53); WHITE BLOOD COUNT 8.4 K/uL (4.1-10.2)
[2018-07-27 07:59] LABS: PLATELET COUNT 137 K/uL (156-360)
[2018-07-27 08:16] LABS: ALBUMIN 2.5 G/DL (3.2-4.8); CHLORIDE 101 MEQ/L (99-109); CREATININE 5.9 MG/DL (0.6-1.3); GFR ESTIMATE (CALCULATED) 8 mL/min/; GLUCOSE 231 mg/dL (70-99); SODIUM 134 MEQ/L (136-147); UREA NITROGEN (BUN) 34 mg/dL (9-23)
[2018-07-27 12:06] VITALS: BP 115/57
[2018-07-27 16:11] VITALS: BP 129/57
[2018-07-27 21:10] VITALS: BP 148/64
[2018-07-28 00:28] VITALS: BP 124/58
[2018-07-28 07:23] VITALS: BP 128/60
[2018-07-28 15:29] VITALS: BP 139/63
[2018-07-28 22:10] VITALS: BP 125/60
[2018-07-29 06:33] LABS: VANCOMYCIN, TROUGH 21.5 MCG/ML (10-20)
[2018-07-29 07:18] VITALS: BP 102/47
[2018-07-29 09:25] LABS: BASOPHIL (%) 0.5 % (0-1); EOSINOPHIL (%) 1.6 % (0-5); EOSINOPHIL COUNT 0.1 K/uL (0-0.3); HEMATOCRIT 32.6 % (36.0-46.0); HEMOGLOBIN 10.2 G/DL (11.9-15.5); IMMATURE GRANULOCYTE (%) 0.6 % (0.0-0.7); LYMPHOCYTE (%) 17.4 % (15-42); LYMPHOCYTE COUNT 1.4 K/uL (1.0-2.8); MCH 28.9 PG (29.0-34.0); MCHC 31.3 G/DL (30.0-36.0); MCV 92.4 FL (83-99); MONOCYTE (%) 9.2 % (3-12); MONOCYTE COUNT 0.7 K/uL (0-0.8); NEUTROPHIL (%) 70.7 % (45-76); NEUTROPHIL COUNT 5.6 K/uL (1.8-6.4); PLATELET COUNT 169 K/uL (156-360); RBC DIS.WIDTH-CV 22.3 % (11.8-14.6); RED BLOOD COUNT 3.53 M/uL (3.80-5.20); WHITE BLOOD COUNT 7.9 K/uL (4.1-10.2)
[2018-07-29 09:39] LABS: ALBUMIN 2.2 G/DL (3.2-4.8); CHLORIDE 103 MEQ/L (99-109); CREATININE 4.9 MG/DL (0.6-1.3); GFR ESTIMATE (CALCULATED) 9 mL/min/; GLUCOSE 207 mg/dL (70-99); PHOSPHORUS 4.5 mg/dL (2.5-4.9); POTASSIUM 4.5 MEQ/L (3.7-5.4); SODIUM 136 MEQ/L (136-147); UREA NITROGEN (BUN) 34 mg/dL (9-23)
[2018-07-29 16:05] VITALS: BP 128/59
[2018-07-29] MEDS ORDERED: OXYCONTIN10 MG PO (17:40)
[2018-07-29] MEDS ORDERED: LYRICA25 MG PO (17:40)
== END 2018-07-29 18:06 | DRG 853 ==
LOC: EME 14:25 → EDOF 16:16 → 5EAST 16:16 → ENRESERV 16:21 → 5EAST 16:52
PROVIDERS: Emergency Medicine; Hospitalist; Internal Medicine; Internal Medicine Nephrology; Physician Assistant; Student in an Organized Health Care Education/Training Program
DX: A41.81 Sepsis due to Enterococcus (principal); E11.628 Type 2 diabetes mellitus with other skin complications; L03.312 Cellulitis of back [any part except buttock and flank]; L02.211 Cutaneous abscess of abdominal wall; L03.116 Cellulitis of left lower limb; L02.416 Cutaneous abscess of left lower limb; B95.62 Methicillin resistant Staphylococcus aureus infection as the cause of diseases classified elsewhere; B96.4 Proteus (mirabilis) (morganii) as the cause of diseases classified elsewhere; E11.621 Type 2 diabetes mellitus with foot ulcer; L97.428 Non-pressure chronic ulcer of left heel and midfoot with other specified severity; E11.622 Type 2 diabetes mellitus with other skin ulcer; L89.221 Pressure ulcer of left hip, stage 1; L89.890 Pressure ulcer of other site, unstageable; L89.320 Pressure ulcer of left buttock, unstageable; L89.310 Pressure ulcer of right buttock, unstageable; L89.150 Pressure ulcer of sacral region, unstageable; E11.42 Type 2 diabetes mellitus with diabetic polyneuropathy; E11.52 Type 2 diabetes mellitus with diabetic peripheral angiopathy with gangrene; I96 Gangrene, not elsewhere classified; I13.2 Hypertensive heart and chronic kidney disease with heart failure and with stage 5 chronic kidney disease, or end stage renal disease; N18.6 End stage renal disease; Z99.2 Dependence on renal dialysis; I50.9 Heart failure, unspecified; E11.22 Type 2 diabetes mellitus with diabetic chronic kidney disease; D69.59 Other secondary thrombocytopenia; T36.0X5A Adverse effect of penicillins, initial encounter; D63.1 Anemia in chronic kidney disease; I89.0 Lymphedema, not elsewhere classified; E66.01 Morbid (severe) obesity due to excess calories; Z68.42 Body mass index [BMI] 45.0-49.9, adult; G47.33 Obstructive sleep apnea (adult) (pediatric); I25.10 Atherosclerotic heart disease of native coronary artery without angina pectoris; I48.2 Chronic atrial fibrillation; E78.5 Hyperlipidemia, unspecified; R15.9 Full incontinence of feces; I87.8 Other specified disorders of veins; K21.9 Gastro-esophageal reflux disease without esophagitis; F41.9 Anxiety disorder, unspecified; F32.9 Major depressive disorder, single episode, unspecified; G89.4 Chronic pain syndrome; Z85.3 Personal history of malignant neoplasm of breast; Z85.72 Personal history of non-Hodgkin lymphomas; Z92.3 Personal history of irradiation; Z86.14 Personal history of Methicillin resistant Staphylococcus aureus infection; Z79.01 Long term (current) use of anticoagulants; Z79.4 Long term (current) use of insulin; Z79.82 Long term (current) use of aspirin; Z95.5 Presence of coronary angioplasty implant and graft; Z90.711 Acquired absence of uterus with remaining cervical stump; Z96.611 Presence of right artificial shoulder joint; Z95.820 Peripheral vascular angioplasty status with implants and grafts
CPT/HCPCS: 80048; 80053; 80069; 80202; 82948; 83036; 85025; 85027; 87040; 87070; 87075; 87077; 87147; 87186; 87205; 87641; 87801; 88305; 93005; 97530 GO; 97530 GP; 99281; 99285; A6214; A6260; J0330; J1170; J1815; J2270; J2405; J2543; J3010; J3370; J7040; J7050; S0020